=== PATIENT | male | born 1960 | race Caucasian/White ===

== ENCOUNTER 2017-03-27 16:04 | Emergency (ER) | payer BC ==
[~2017-03-27] VITALS: Ht 170.2 cm; Wt 66.1 kg
[2017-03-27 16:36] LABS: HEMATOCRIT 42.8 % (38.0-50.0); MCH 32.9 PG (29.0-34.0); MCHC 34.6 G/DL (30.0-36.0); MCV 95.1 FL (86-99); MEAN PLAT.VOLUME 10.8 uM^3 (9.0-12.4); PLATELET COUNT 167 K/uL (156-360); RBC DIS.WIDTH-CV 12.4 % (11.8-14.6); RBC DIS.WIDTH-SD 43.8 % (39-53); WHITE BLOOD COUNT 6.1 K/uL (4.1-10.2)
[2017-03-27 16:46] LABS: CHLORIDE 105 mEq/L (99-109); POTASSIUM 3.5 mEq/L (3.7-5.4); SODIUM 140 mEq/L (136-147)
[2017-03-27 16:48] LABS: GLUCOSE 106 mg/dL (70-99)
[2017-03-27 16:49] LABS: ANION GAP 11 MEQ/L (2-14)
[2017-03-27 16:53] LABS: UREA NITROGEN (BUN) 13 mg/dL (9-23)
[2017-03-27 16:56] LABS: GFR ESTIMATE (CALCULATED) > 59 mL/min/
[2017-03-27 17:01] LABS: ADD MIUA? YES; BILIRUBIN NEGATIVE; BLOOD MODERATE; COLOR STRAW ((YELLOW)); GLUCOSE (STRIP) NEGATIVE; KETONES NEGATIVE; LEUKOCYTES NEGATIVE; NITRITE NEGATIVE; PROTEIN (STRIP) NEGATIVE; SPECIFIC GRAVITY 1.011 (1.000-1.030); UROBILINOGEN 0.2 MG/DL (0.2-1.0)
[2017-03-27 17:06] LABS: BACTERIA NONE SEEN /HPF; EPITHELIAL CELLS NONE SEEN /HPF; MUCUS NONE SEEN /LPF; RED BLOOD CELLS TNTC /HPF (0-5); UCUL ADDED? YES; WHITE BLOOD CELLS 0-5 /HPF (0-5)
[2017-03-27 19:01] VITALS: BP 122/78
== END 2017-03-27 19:02 | disposition home or self-care (01) ==
LOC: EME 16:04
PROVIDERS: Physician Assistant Medical
PROC: 0T9B70Z Drainage of Bladder with Drainage Device, Via Natural or Artificial Opening (ICD-10-PCS; principal; 2017-03-27)
DX: N40.1 Benign prostatic hyperplasia with lower urinary tract symptoms (principal); R33.8 Other retention of urine; R42 Dizziness and giddiness; K57.90 Diverticulosis of intestine, part unspecified, without perforation or abscess without bleeding; K59.00 Constipation, unspecified
CPT/HCPCS: 74176; 80048; 81003; 85027; 87086; 99281; 99284